=== PATIENT | female | born 1935 | race Caucasian/White ===

== ENCOUNTER → 2017-10-26 | Outpatient (CLI) | payer MEDICARE ==
--- NOTE | 2017-10-26 11:49 | US ---
EXAMINATION TYPE: US venous doppler duplex LE LT DATE OF EXAM: 10/26/2017 11:36 AM COMPARISON: NONE CLINICAL HISTORY: R60.0 EDEMA. lEFT LEG EDEMA SIDE PERFORMED: Left TECHNIQUE: The lower extremity deep venous system is examined utilizing real time linear array sonog jimmy with graded compression, doppler sonography and color-flow sonography. VESSELS IMAGED: External Iliac Vein (EIV) Common Femoral Vein Deep Femoral Vein Greater Saphenous Vein * Femoral Vein Popliteal Vein Small Saphenous Vein * Proximal Calf Veins (* superficial vessels) Left Leg: Negative for DVT NO EVIDENCE OF DVT LEFT LEG. IMPRESSION: 1. Left lower extremity ultrasound negative for deep venous thrombosis.
== END | disposition home or self-care (01) ==
LOC: RADUSWWP 11:02
PROVIDERS: ATTEND Family Medicine
DX: R60.0 Localized edema (principal)

== ENCOUNTER → 2018-10-29 | Outpatient (CLI) | payer MEDICARE | END | disposition home or self-care (01) | LOC: CPPFTMAIN 14:21 | PROVIDERS: ATTEND Internal Medicine Critical Care Medicine | DX: J43.9 Emphysema, unspecified (principal) | CPT/HCPCS: 94060; 94726; 94729 ==

== ENCOUNTER 2019-04-10 06:39 | Day surgery (SDC) | payer MEDICARE ==
[2019-04-08 10:42] VITALS: BMI 21.1
[~2019-04-10 06:39] MED LIST: LACTATED RINGERS 1,000 ML IV SCH
[2019-04-10 07:16] VITALS: TEMP 97.6
[2019-04-10] MEDS ORDERED: LACTATED RINGERS 1,000 ML IV ONE ×2 (07:25)
[2019-04-10] MEDS ORDERED: PROPOFOL 10 MG/ML 20 ML VIAL IV ONE (07:38)
--- NOTE | 2019-04-10 07:45 | P.GSHP ---
History of Present Illness H&P Date: 04/10/19 CHIEF COMPLAINT: GERD HISTORY OF PRESENT ILLNESS: The patient is a 83-year-old female who presents reports gastroesophageal reflux disease. Upper endoscopy was offered for further evaluation and management. PAST MEDICAL HISTORY: Please see list. PAST SURGICAL HISTORY: Please see list. MEDICATIONS: Please see list. ALLERGIES: Please see list. SOCIAL HISTORY: No illicit drug use FAMILY HISTORY: No reports of Crohn disease or ulcerative colitis. REVIEW OF ORGAN SYSTEMS: CONSTITUTIONAL: No reports of fevers or chills. GI: Denies any blood in stools or constipation. PHYSICAL EXAM: VITAL SIGNS: Stable GENERAL: Well-developed and pleasant in no acute distress. HEENT: No scleral icterus. Extraocular movements grossly intact. Moist buccal mucosa. NECK: Supple without lymphadenopathy. CHEST: Unlabored respirations. Equal bilateral excursions. CARDIOVASCULAR: Regular rate and rhythm. Distal 2+ pulses. ABDOMEN: Soft, nondistended. MUSCULOSKELETAL: No clubbing, cyanosis, or edema. ASSESSMENT: 1. Gastroesophageal reflux disease PLAN: 1. Recommend proceeding with an upper endoscopy Past Medical History Past Medical History: Cancer, COPD, GERD/Reflux, Hypertension, Osteoarthritis (OA), Thyroid Disorder Additional Past Medical History / Comment(s): hx migraines, macular degeneration, heart murmer, varicose veins, hx ulver, constipation, gallstones, skin cancer History of Any Multi-Drug Resistant Organisms: None Reported Past Surgical History: Joint Replacement Additional Past Surgical History / Comment(s): skin cancer removed from forehead, cassia knee replacement, vein stripping, cassia cataracts Past Anesthesia/Blood Transfusion Reactions: No Reported Reaction Smoking Status: Former smoker - Past Family History Mother Family Medical History: No Reported History Medications and Allergies Home Medications Medication Instructions Recorded Confirmed Type Albuterol Sulfate [Proair Hfa] 1 - 2 puff INHALATION DAILY PRN 09/29/16 04/08/19 History Aspirin 325 mg PO DAILY 09/29/16 04/08/19 History LORazepam [Ativan] 1 mg PO DAILY 09/29/16 04/08/19 History Latanoprost Ophth [Xalatan 0.005%] 1 drops BOTH EYES HS 09/29/16 04/08/19 History Levothyroxine Sodium [Synthroid] 75 mcg PO DAILY 09/29/16 04/08/19 History amLODIPine BESYLATE [Norvasc] 5 mg PO DAILY 09/29/16 04/08/19 History Cholecalciferol (Vitamin D3) 2,000 unit PO DAILY 04/08/19 04/08/19 History [Vitamin D3] Fluticasone/Vilanterol [Breo 1 inhalation INHALATION DAILY 04/08/19 04/08/19 History Ellipta 200-25 Mcg INH] Hydrocodone/Acetaminophen [[place] 1 tab PO QID PRN 04/08/19 04/08/19 History 5-325] Pramipexole Di-HCl [Mirapex] 0.5 mg PO 1200,2100 04/08/19 04/08/19 History Vit C/E/Zn/Coppr/Lutein/Zeaxan 1 each PO DAILY 04/08/19 04/08/19 History [Preservision Areds 2 Softgel] Vitamin B12(Dose Unknown) 1 tab PO DAILY 04/08/19 04/08/19 History Vitamin C(Dose Unknown) 1 tab PO DAILY 04/08/19 04/08/19 History Vitamin E(Dose Unknown) 1 tab PO DAILY 04/08/19 04/08/19 History Allergies Allergy/AdvReac Type Severity Reaction Status Date / Time adhesive tape Allergy skin Verified 04/08/19 10:22 irritation Penicillins Allergy Itching Verified 04/08/19 10:21 haloperidol [From Haldol] AdvReac Hallucinati Verified 04/08/19 10:21 ons morphine AdvReac Hallucinati Verified 04/08/19 10:21 ons Surgical - Exam Vital Signs Temp Pulse Resp BP Pulse Ox 97.6 F 91 18 157/93 92 L 04/10/19 07:13 04/10/19 07:13 04/10/19 07:13 04/10/19 07:13 04/10/19 07:13
--- NOTE | 2019-04-10 07:59 | P.PCN ---
Date of Procedure: 04/10/19 Description of Procedure: PREOPERATIVE DIAGNOSIS: History of gastric ulcers Abdominal pain POSTOPERATIVE DIAGNOSIS: Superficial gastric ulcers with bleeding, acute on chronic Diaphragmatic hiatal hernia OPERATION: Esophagogastroduodenoscopy with biopsies along antrum. SURGEON: Shana Matos MD ANESTHESIA: MAC. INDICATIONS: The patient is a 83-year-old female who presents with a history of gastric ulcers. Benefits and risks of the procedure were described. Informed consent was obtained. DESCRIPTION: The patient was brought into the endoscopy suite and laid in the left lateral decubitus position. An Olympus gastroscope was passed along the posterior oropharynx down to the distal esophagus where the squamocolumnar junction was encountered at 36 cm from the incisors. The stomach was entered and no bile reflux was found. Additional findings are listed below. Biopsies with cold forceps were obtained of the antrum. The first through third portion of the duodenum was examined and unremarkable. Retroflexion of the scope confirmed Hill grade 2 lower esophageal valve. The squamocolumnar junction demonstrated LA grade B erosive esophagitis. The stomach was desufflated. The patient tolerated the procedure well. FINDINGS: Squamocolumnar junction 36 cm from the incisors. Diaphragmatic hiatus at 40 cm. Hiatal hernia, 4 cm Hill grade 2 lower esophageal valve. LA grade B erosive esophagitis. No active duodenitis. Acute and chronic superficial gastric ulcers with gastritis and bleeding RECOMMENDATIONS: Proton pump inhibitor treatment at least 4 weeks Repeat upper endoscopy one month Plan - Discharge Summary Discharge Rx Participant: No New Discharge Prescriptions: New Omeprazole 40 mg PO DAILY #30 capsule.dr No Action Levothyroxine Sodium [Synthroid] 75 mcg PO DAILY Latanoprost Ophth [Xalatan 0.005%] 1 drops BOTH EYES HS Aspirin 325 mg PO DAILY Albuterol Sulfate [Proair Hfa] 1 - 2 puff INHALATION DAILY PRN PRN Reason: Shortness Of Breath amLODIPine BESYLATE [Norvasc] 5 mg PO DAILY LORazepam [Ativan] 1 mg PO DAILY Cholecalciferol (Vitamin D3) [Vitamin D3] 2,000 unit PO DAILY Fluticasone/Vilanterol [Breo Ellipta 200-25 Mcg INH] 1 inhalation INHALATION DAILY Pramipexole Di-HCl [Mirapex] 0.5 mg PO 1200,2100 Hydrocodone/Acetaminophen [[place]ice 5-325] 1 tab PO QID PRN PRN Reason: Pain Vitamin E(Dose Unknown) 1 tab PO DAILY Vitamin C(Dose Unknown) 1 tab PO DAILY Vitamin B12(Dose Unknown) 1 tab PO DAILY Vit C/E/Zn/Coppr/Lutein/Zeaxan [Preservision Areds 2 Softgel] 1 each PO DAILY Discharge Medication List Albuterol Sulfate [Proair Hfa] 1 - 2 puff INHALATION DAILY PRN 09/29/16 [History] Aspirin 325 mg PO DAILY 09/29/16 [History] LORazepam [Ativan] 1 mg PO DAILY 09/29/16 [History] Latanoprost Ophth [Xalatan 0.005%] 1 drops BOTH EYES HS 09/29/16 [History] Levothyroxine Sodium [Synthroid] 75 mcg PO DAILY 09/29/16 [History] amLODIPine BESYLATE [Norvasc] 5 mg PO DAILY 09/29/16 [History] Cholecalciferol (Vitamin D3) [Vitamin D3] 2,000 unit PO DAILY 04/08/19 [History] Fluticasone/Vilanterol [Breo Ellipta 200-25 Mcg INH] 1 inhalation INHALATION DAILY 04/08/19 [History] Hydrocodone/Acetaminophen [[place]ice 5-325] 1 tab PO QID PRN 04/08/19 [History] Pramipexole Di-HCl [Mirapex] 0.5 mg PO 1200,2100 04/08/19 [History] Vit C/E/Zn/Coppr/Lutein/Zeaxan [Preservision Areds 2 Softgel] 1 each PO DAILY 04/08/19 [History] Vitamin B12(Dose Unknown) 1 tab PO DAILY 04/08/19 [History] Vitamin C(Dose Unknown) 1 tab PO DAILY 04/08/19 [History] Vitamin E(Dose Unknown) 1 tab PO DAILY 04/08/19 [History] Omeprazole 40 mg PO DAILY #30 capsule. 04/10/19 [Rx] Follow up Appointment(s)/Referral(s): Shana Matos MD [STAFF PHYSICIAN] - 04/22/19 Patient Instructions/Handouts: Diet for Stomach Ulcers and Gastritis (ED), Hiatal Hernia (DC) Discharge Disposition: HOME SELF-CARE
[2019-04-10 08:22] VITALS: BP 143/87; PULSE 83; RESP 18
== END 2019-04-10 08:45 | disposition home or self-care (01) ==
LOC: ORWHC2ENDO 06:39
PROVIDERS: ATTEND Surgery Plastic and Reconstructive Surgery
DX: K29.51 Unspecified chronic gastritis with bleeding (principal); K25.0 Acute gastric ulcer with hemorrhage; K25.4 Chronic or unspecified gastric ulcer with hemorrhage; K44.9 Diaphragmatic hernia without obstruction or gangrene; K21.0 Gastro-esophageal reflux disease with esophagitis; K22.10 Ulcer of esophagus without bleeding; I10 Essential (primary) hypertension; G43.909 Migraine, unspecified, not intractable, without status migrainosus; J44.9 Chronic obstructive pulmonary disease, unspecified; E07.9 Disorder of thyroid, unspecified; M19.90 Unspecified osteoarthritis, unspecified site; K21.9 Gastro-esophageal reflux disease without esophagitis; H35.30 Unspecified macular degeneration; Z79.82 Long term (current) use of aspirin; Z79.890 Hormone replacement therapy; Z79.899 Other long term (current) drug therapy; Z88.1 Allergy status to other antibiotic agents; Z88.0 Allergy status to penicillin; Z88.5 Allergy status to narcotic agent; Z91.048 Other nonmedicinal substance allergy status; Z87.891 Personal history of nicotine dependence; Z85.828 Personal history of other malignant neoplasm of skin; Z98.41 Cataract extraction status, right eye; Z98.42 Cataract extraction status, left eye; Z96.653 Presence of artificial knee joint, bilateral; Z79.51 Long term (current) use of inhaled steroids
CPT/HCPCS: 88305; 43239; J2704

== ENCOUNTER → 2022-01-11 | Outpatient (CLI) | payer MEDICARE ==
--- NOTE | 2022-01-12 05:46 | MR ---
EXAMINATION TYPE: MR lumbar spine wo con DATE OF EXAM: 01/11/2022 COMPARISON: None HISTORY: Scoliosis, radiculopathy, pain, prior surgery Multiplanar multi echo imaging of the lumbar spine performed without contrast. There is a thoracolumbar moderate dextroscoliotic deformity. There is disc space narrowing throughout the lumbar spine and more severe at from L2 to L5. There is increased fluid signal in the disc at L1 to. There is mild spinal stenosis at L1-2 due to th e facet arthropathy and scoliotic deformity. There is mild compression deformity of the L1 vertebral body with biconcave deformity and 50% loss of height. I see no lumbar paraspinal mass. No definite pa raspinal fluid collection. No significant edema in the L1 and L2 vertebral bodies. IMPRESSION: Moderate scoliotic deformity. Mild relative spinal stenosis at L1-2. There is compression fracture of L1 and also slight wedging of L2. Abnormal increased fluid signal in the disc at L1 to but no signif icant bone edema. This could relate to old discitis.
== END | disposition home or self-care (01) ==
LOC: RADMRIMAIN 10:32
PROVIDERS: ATTEND Orthopaedic Surgery
DX: M48.56XA Collapsed vertebra, not elsewhere classified, lumbar region, initial encounter for fracture (principal); M41.20 Other idiopathic scoliosis, site unspecified; M48.061 Spinal stenosis, lumbar region without neurogenic claudication
CPT/HCPCS: 72148